=== PATIENT | female | born 1965 | race Caucasian/White ===

== ENCOUNTER 2019-03-24 09:29 | Emergency (ER) | payer OTHER ==
[~2019-03-24] VITALS: Ht 175.3 cm; Wt 166.2 kg
[~2019-03-24 09:29] MED LIST: CLIN300C10 PO; ERGO500013 PO; IBUP-1542 PO; LEVO150T7 PO; LEVO175T6 PO; LIOT5TAB15 PO
[2019-03-24 09:32] VITALS: BP 151/85; PULSE 91; RESP 18; Ht 175.3 cm; Wt 166.2 kg
[2019-03-24] MEDS ORDERED: DIPHTH/TET/ACEL PERTUSS (ADULT) 0.5 ML VIAL IM* ONE (10:00)
[2019-03-24] MEDS ORDERED: LIDOCAINE 1% (MPF) 5 ML VIAL INFIL ONE (10:00)
[2019-03-24] MEDS ORDERED: IBUPROFEN 600 MG TAB PO ONE (10:00)
== END 2019-03-24 10:30 | disposition home or self-care (01) ==
LOC: FTE 09:29
DX: S61.210A Laceration without foreign body of right index finger without damage to nail, initial encounter (principal); I10 Essential (primary) hypertension; E03.9 Hypothyroidism, unspecified; W26.8XXA Contact with other sharp object(s), not elsewhere classified, initial encounter; Y92.9 Unspecified place or not applicable; Z23 Encounter for immunization
CPT/HCPCS: 12002; 90471; 90715; Z7502; Z7610